=== PATIENT | female | born 1990 | race Caucasian/White ===

== ENCOUNTER 2022-09-23 09:11 | Emergency (ER) | payer OTHER, MEDICAID, SELFPAY ==
--- NOTE | ~2022-09-23 | XR_ITS ---
EXAMINATION: XR CHEST CLINICAL INFORMATION: Pain COMPARISON: None TECHNIQUE: 2 views of the chest were obtained. FINDINGS: The cardiomediastinal silhouette is within normal limits. The lungs are well expanded. There is no focal consolidation, edema, or effusion. No pneumothorax. No acute osseous abnormality. XR/XR chest 2V IMPRESSION: No acute cardiopulmonary findings
[2022-09-23 09:51] VITALS: BP 128/85; PULSE 57; RESP 18; TEMP 36.1; O2SAT 98; BMI 27.2
--- NOTE | 2022-09-23 12:13 | ECG_ITS ---
Test Reason : ANXIETY Blood Pressure : / mmHG Vent. Rate : 059 BPM Atrial Rate : 059 BPM P-R Int : 146 ms QRS Dur : 080 ms QT Int : 448 ms P-R-T Axes : 008 034 019 degrees QTc Int : 443 ms Sinus bradycardia Otherwise normal ECG No previous ECGs available Referred By: Mansoor Hicks Electronically Signed By:Lamin Delgado
--- NOTE | 2022-09-23 13:35 | ED.ANXIETY ---
HPI - Anxiety General Chief Complaint: Anxiety <ISHA Leal - Last Filed: 09/24/22 18:43> Stated Complaint: anxiety, dry heaving <ISHA Leal - Last Filed: 09/24/22 18:43> Time Seen by Provider: 09/23/22 11:39 <ISHA Leal - Last Filed: 09/24/22 18:43> History of Present Illness HPI narrative: patient complains of several episodes that she believes or anxiety attacks where she had her heart racing, felt short of breath was dry heaving, tingling in both hands She does have a history of anxiety issues but takes no medication for, and has had similar episodes of anxiety attack in the past but not for many months Symptoms began as she was driving there was no exertional component no diaphoresis no actual vomiting <ISHA Leal Last Filed: 09/24/22 18:43> Related Data Home Medications: Previous Rx's Medication Instructions Recorded lorazepam 0.5 mg tablet (Ativan) 0.5 mg PO TID PRN anxiety #10 tabs 09/23/22 <ISHA Leal - Last Filed: 09/24/22 18:43> Allergies/Adverse Reactions: Allergies Allergy/AdvReac Type Severity Reaction Status Date / Time No Known Allergies Allergy Verified 09/23/22 09:50 <ISHA Leal - Last Filed: 09/24/22 18:43> [facility] Past Medical History Source: nursing notes reviewed <ISHA Leal - Last Filed: 09/24/22 18:43> Social History Social History: Social History Advance Directives: No Advance Directives Information Provided: No <ISHA Leal Last Filed: 09/24/22 18:43> Physical Exam Vital Signs: Vital Signs: Last Vital Signs Temp 97 F 09/23/22 09:51 Pulse 57 09/23/22 09:51 Resp 18 09/23/22 09:51 BP 128/85 09/23/22 09:51 Pulse Ox 98 09/23/22 09:51 O2 Del Method 09/23/22 09:51 BMI result Body Mass Index 27.2 <ISHA Leal Last Filed: 09/24/22 18:43> Vital Signs: Last Vital Signs Temp 97 F 09/23/22 09:51 Pulse 57 09/23/22 09:51 Resp 18 09/23/22 09:51 BP 128/85 09/23/22 09:51 Pulse Ox 98 09/23/22 09:51 O2 Del Method 09/23/22 09:51 BMI result Body Mass Index 27.2 <Everette Thomas MD - Last Filed: 09/27/22 11:09> general appearance is com no acute distress The pharynx is clear with moist mucous membranes, no redness swelling or exudate Neck is supple Chest is clear to auscultation bilateral, no pleuritic pain no chest wall tenderness Heart no murmur Abdomen soft nontender Extremities no calf tenderness or swelling no edema, full range of motion x4 Skin no rash Neuro gait and balance are normal, interaction comprehension and expression are normal cranials 2 through 12 intact as tested, motor 5/5 x4 and sensati <ISHA Leal - Last Filed: 09/24/22 18:43> Course Course Course Narrative: patient with 2 episodes of likely anxiety attack with heart racing hyperventilating and dry heaving, does have a stressful job EKG was without evidence of ischemia, rhythm was sinus bradycardia with a rate of 59, FL interval, QRS were normal, no acute ST-T changes no acute ischemic changes Chest x-ray was read as normal Symptoms had resolved by the time I saw her without treatment Patient agrees anxiety is likely diagnosis and this is now resolved without treatment and she is given a prescription to Ativan to take as needed should she develop another attack and to return if she develops any worsening or change chest pain or shortness of breath <ISHA Leal - Last Filed: 09/24/22 18:43> Medical Decision Making Attestation Attending Attestation: I reviewed TRANSPORTATION SECURITY SCREENER/PA/Resident note, assessment and plan. I agree with the documentation, assessment and plan unless otherwise stated. <Everette Thomas MD - Last Filed: 09/27/22 11:09> Discharge Plan Discharge Clinical Impression: Acute anxiety <ISHA Leal - Last Filed: 09/24/22 18:43> Patient Disposition: Home, Self-Care <ISHA Leal - Last Filed: 09/24/22 18:43> Additional Instructions: your EKG was normal and your chest x-ray was normal It is likely the symptoms were from an anxiety attack so I wrote a prescription for Ativan to use only if needed if you are developing an anxiety attack Should you develop any worse or changed chest pain or shortness of breath return to the ER so we can re-evaluate Follow with primary doctor if symptoms continue as there are many medications that can prevent anxiety from getting worse, but they require dose adjustment and interaction with a primary doctor or psychiatrist <ISHA Leal - Last Filed: 09/24/22 18:43> Prescriptions: New lorazepam [Ativan] 0.5 mg tablet 0.5 mg PO TID PRN (Reason: anxiety) Qty: 10 0RF <ISHA Leal - Last Filed: 09/24/22 18:43> Stand Alone Forms: Work/School Release <ISHA Leal - Last Filed: 09/24/22 18:43> Interventions: ED Discharge Assessment Last Done: 09/23/22 13:53 <ISHA Leal - Last Filed: 09/24/22 18:43> Discharge Date/Time: 09/23/22 13:54 <ISHA Leal - Last Filed: 09/24/22 18:43>
== END 2022-09-23 13:54 | disposition home or self-care (01) ==
PROVIDERS: Emergency Provider Emergency Medicine
DX: F41.9 Anxiety disorder, unspecified (principal); R00.2 Palpitations
CPT/HCPCS: 71046; 93005; 99283